=== PATIENT | female | born 1990 | race African-American/Black ===

== ENCOUNTER 2021-12-22 17:49 | Emergency (ER) | payer OTHER ==
[2021-12-22] MEDS ORDERED: Ketorolac Tromethamine 30 MG/ML VIAL ONE (19:09)
== END 2021-12-22 19:43 | disposition home or self-care (01) ==
LOC: ERS 17:49
DX: S93.402A Sprain of unspecified ligament of left ankle, initial encounter (principal); X50.9XXA Other and unspecified overexertion or strenuous movements or postures, initial encounter
CPT/HCPCS: 96372; J1885